=== PATIENT | male | born 1990 | race Two or more races ===

== ENCOUNTER 2017-12-01 08:33 | Emergency (ER) | payer OTHER ==
[2017-12-01 09:34] VITALS: BP 112/69
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
== END 2017-12-01 10:19 | disposition short-term general hospital (02) ==
LOC: UCEAST 08:33
DX: M54.2 Cervicalgia (principal); R51 Headache; S01.511A Laceration without foreign body of lip, initial encounter; V86.56XA Driver of dirt bike or motor/cross bike injured in nontraffic accident, initial encounter; Y92.9 Unspecified place or not applicable
CPT/HCPCS: 99203; G0463

== ENCOUNTER 2017-12-01 10:38 | Emergency (ER) | payer OTHER ==
[2017-12-01] MEDS ORDERED: Tetan/Diph/Pertus SYR(Tdap)* 0.5 ML SYR(BOOSTRIX) use SYR IM ONE (11:02)
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
[2017-12-01 11:45] LABS: ABS Basophils 0 10^3/ul (0-0.2); ABS Eosinophils 0.1 10^3/ul (0-0.6); ABS Monocytes 0.7 10^3/ul (0-0.8); ABS Neutrophils 5.8 10^3/ul (1.5-7.7); ABS Nucleated RBC 0 10^3/ul; Eosinophil % 0.9 % (0-6); Hematocrit 42 % (42-52); Hemoglobin 14.4 g/dl (14.0-18.0); Lymphocyte % 13.3 % (25-47); Mean Corpuscular HGB Conc 34 g/dl (31-36); Mean Corpuscular Hemoglobin 31 pg (27-31); Mean Corpuscular Volume 90 fL (80-94); Mean Platelet Volume 8 um3 (7.4-10.4); Nucleated Red Blood Cells % 0; Platelet Count 180 10^3/ul (150-450); Red Blood Count 4.66 10^6/ul (4.0-5.4); Red Cell Distribution Width 13 % (10.5-15); White Blood Count 7.6 10^3/ul (3.5-10.8)
[2017-12-01] MEDS ORDERED: Ketorolac INJ* 30 MG/ML 1 ML VIAL IV PUSH ONE (12:08)
[2017-12-01 12:14] LABS: EGFR Non-African American 69.8 (>60)
[2017-12-01] MEDS ORDERED: Ketorolac INJ* 60 MG/2 ML VIAL ONE (12:18)
[2017-12-01] MEDS ORDERED: Ketorolac INJ* 60 MG/2 ML VIAL IM ONE (12:25)
[2017-12-01 13:21] VITALS: BP 117/58
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
== END 2017-12-01 13:20 | disposition home or self-care (01) ==
LOC: ED 10:38
DX: S01.511A Laceration without foreign body of lip, initial encounter (principal); R51 Headache; M54.2 Cervicalgia; V86.56XA Driver of dirt bike or motor/cross bike injured in nontraffic accident, initial encounter; Y92.9 Unspecified place or not applicable
CPT/HCPCS: 36415; 70450; 70486; 72125; 80053; 85025; 90471; 90715; 93005; 96372; 96374; 99282; J1885

== ENCOUNTER 2019-02-26 10:44 | Day surgery (SDC) | payer OTHER ==
[~2019-02-26 10:44] MED LIST: Acetaminophen TAB* 325 MG PO PRN; Buffered Lidocaine 1% SYRIN* 1 ML/SYRINGE INTRADERM ONE; DiMENhydriNATE IV* 50 MG/ML VIAL IV PUSH PRN; Famotidine IV* 10 MG/ML 2 ML (20 mg) IV ONE; Lactated Ringers 1000 ML Bag* 1,000 ML IV SCH; Naloxone* 0.4 MG/ML 1 ML VIAL IV PRN; oxyCODONE TAB* 5 MG TAB PO PRN
[2019-02-26] MEDS ORDERED: fentaNYL* 50 MCG/ML 2 ML VIAL (100 MCG VIAL) ONE (10:46)
[2019-02-26] MEDS ORDERED: Midazolam* 1 MG/ML 5 ML VIAL (5 MG) ONE (10:46)
[2019-02-26] MEDS ORDERED: Famotidine IV* 10 MG/ML 2 ML (20 mg) ONE (11:12)
[2019-02-26] MEDS ORDERED: ceFAZolin 2 GM PREMIX in ORs 2 GM/50 ML BAG IVPB ONE (11:14)
[2019-02-26] MEDS ORDERED: Bupivacaine 0.25% SDV* 30 ML ONE (12:43)
[2019-02-26] MEDS ORDERED: Dexamethasone IV* 4 MG/ML 1 ML (4 MG) ONE (13:07)
[2019-02-26] MEDS ORDERED: Propofol* 10 MG/ML 20 ML BTL ONE (13:07)
[2019-02-26] MEDS ORDERED: Lidocaine 2% PF * 5 ML VIAL ONE (13:07)
[2019-02-26] MEDS ORDERED: Ondansetron INJ* 2 MG/ML VIAL ONE (13:07)
[2019-02-26] MEDS ORDERED: Ketorolac INJ* 30 MG/ML 1 ML VIAL ONE (13:07)
[2019-02-26] MEDS ORDERED: fentaNYL* 50 MCG/ML 5 ML VIAL (250 MCG VIAL) ONE (13:22)
[2019-02-26 16:05] VITALS: BP 110/76
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
== END 2019-02-26 16:14 | disposition home or self-care (01) ==
LOC: OREAST 10:44
PROVIDERS: ATTEND Orthopaedic Surgery Hand Surgery
DX: S62.034A Nondisplaced fracture of proximal third of navicular [scaphoid] bone of right wrist, initial encounter for closed fracture (principal); V86.56XA Driver of dirt bike or motor/cross bike injured in nontraffic accident, initial encounter; Y92.9 Unspecified place or not applicable
CPT/HCPCS: 76000; C1713; C1776; J0690; J1100; J1885; J2250; J2405; J2704; J3010; J3490

== ENCOUNTER 2019-07-11 19:30 | Emergency (ER) | payer OTHER ==
[2019-07-11 19:36] VITALS: BP 116/63
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
--- NOTE | 2019-07-12 16:44 | ED ---
Progress - Progress Note Progress Note: Final Xray report reviewed: Xrays of left ankle: IMPRESSION: Normal ankle radiograph. If the patient's symptoms persist, follow- up imaging is recommended. Wet read correct, no change in plan . Course/Dx - Diagnoses Provider Diagnoses: Sprain and strain of ankle Discharge ED - Sign-Out/Discharge Documenting (check all that apply): Post-Discharge Follow Up All imaging exams completed and their final reports reviewed: No - Discharge Plan Condition: Stable Disposition: HOME Patient Education Materials: Ankle Sprain (ED) Referrals: Homero Pink MD [Medical Doctor] - Additional Instructions: You can take tylenol or ibuprofen as directed for pain. Rest, elevation, and heat can be implemented as well to alleviate pain. Follow up with pacs specialist if pain continues or worsens. - Billing Disposition and Condition Condition: STABLE Disposition: Home
== END 2019-07-11 20:21 | disposition home or self-care (01) ==
LOC: UCEAST 19:30
DX: S93.402A Sprain of unspecified ligament of left ankle, initial encounter (principal); S96.912A Strain of unspecified muscle and tendon at ankle and foot level, left foot, initial encounter; X50.1XXA Overexertion from prolonged static or awkward postures, initial encounter; Y93.I9 Activity, other involving external motion; Y92.9 Unspecified place or not applicable
CPT/HCPCS: 99211; G0463